=== PATIENT | female | born 1945 | race Two or more races ===

== ENCOUNTER → 2019-06-14 | Outpatient (CLI) | payer MEDICARE, SELFPAY | END | disposition home or self-care (01) | LOC: LABSPEC 15:25 | PROVIDERS: Referring Provider Dermatology Pediatric Dermatology; Visit Provider Dermatology Pediatric Dermatology | DX: L72.0 Epidermal cyst (principal); L02.211 Cutaneous abscess of abdominal wall | CPT/HCPCS: 87070; 87077; 87186; 87205 ==